=== PATIENT | male | born 1945 | race Caucasian/White ===

== ENCOUNTER 2018-04-16 14:16 | Inpatient (IN) | payer MEDICARE, MEDICAID ==
[~2018-04-16] VITALS: Ht 182.9 cm; Wt 63.2 kg
[2018-04-16] MEDS ORDERED: methylPREDNISolone SOD SUCC 125 MG/2 ML ONE (14:55)
[2018-04-16 14:58] LABS: BASOPHILS # (AUTO) 0.03 x10^3/uL (0-0.1); BASOPHILS % (AUTO) 0 % (0-1); EOSINOPHILS % (AUTO) 0 % (1-7); LYMPHOCYTES # (AUTO) 1.32 x10^3/uL (1-3.4); LYMPHOCYTES % (AUTO) 10 % (22-44); MD NO; MEAN CORPUSCULAR HEMOGLOBIN 32.1 pg (27.5-34.5); MEAN CORPUSCULAR HGB CONC 33.4 g/dL (33.2-36.2); MEAN CORPUSCULAR VOLUME 96.1 fL (81-97); MEAN PLATELET VOLUME 8.8 fL (7.4-10.4); MONOCYTES # (AUTO) 1.22 x10^3/uL (0.2-0.8); MONOCYTES % (AUTO) 9 % (2-9); NEUTROPHILS # (AUTO) 10.57 x10^3/uL (1.8-6.8); NEUTROPHILS % (AUTO) 80 % (42-75); PLATELET COUNT 192 x10^3/uL (130-400); RED BLOOD COUNT 4.86 x10^6/uL (4.38-5.82); RED CELL DISTRIBUTION WIDTH 13.4 % (9.4-14.8)
[2018-04-16] MEDS ORDERED: methylPREDNISolone SOD SUCC 125 MG/2 ML IVP ONE (15:00)
[2018-04-16] MEDS ORDERED: CEFTRIAXONE 1,000 MG in SODIUM CHLORIDE 0.9% 50 ML IVPB ONE (15:00)
[2018-04-16] MEDS ORDERED: AZITHROMYCIN 500 MG in SODIUM CHLORIDE 0.9% 250 ML IVPB ONE (15:00)
[2018-04-16] MEDS ORDERED: ALBUTEROL/IPRATROPIUM 2.5MG/0.5MG, 3 ML ONE (15:01)
[2018-04-16 15:08] LABS: ALBUMIN 3.5 g/dL (3.4-5.0); ANION GAP 10 mmol/L (5-15); CALCIUM 8.7 mg/dL (8.5-10.1); CHLORIDE 102 mmol/L (98-107); CREATININE 0.75 mg/dL (0.7-1.3)
[2018-04-16] MEDS ORDERED: CEFTRIAXONE PMX 1GM/50ML 50 ML ONE (15:10)
[2018-04-16 15:11] LABS: TROPONIN I < 0.015 ng/mL (0.000-0.045)
[2018-04-16] MEDS ORDERED: METHOCARBAMOL 500 MG TABLET PO PRN (17:00)
[2018-04-16] MEDS ORDERED: ONDANSETRON 2MG/ML, 2ML IVPush PRN (17:00)
[2018-04-16] MEDS ORDERED: LABETALOL 5MG/ML, 20ML IVPush PRN (17:00)
[2018-04-16] MEDS ORDERED: BISACODYL 10 MG SUPP PR PRN (17:00)
[2018-04-16] MEDS ORDERED: ACETAMINOPHEN 325 MG TABLET PO PRN (17:00)
[2018-04-16] MEDS ORDERED: hydrALAzine 20 MG/ML, 1ML IVPush PRN (17:00)
[2018-04-16] MEDS ORDERED: LIDODERM 5% PATCH TD PRN (17:00)
[2018-04-16] MEDS: methylPREDNISolone SOD SUCC 125 MG/2 ML IVPush SCH (18:13)
[2018-04-16] MEDS: GUAIFENESIN ER 600 MG TABLET PO SCH ×2 (18:14→20:11)
[2018-04-16] MEDS: HEPARIN 5,000 UNITS/ML, 1ML SQ SCH (18:14)
[2018-04-16] MEDS: CEFTRIAXONE PMX 1GM/50ML 50 ML IV SCH (19:24)
[2018-04-16] MEDS: ALBUTEROL/IPRATROPIUM 2.5MG/0.5MG, 3 ML NPPB SCH ×2 (19:47→23:21)
[2018-04-16 20:00] VITALS: BP 112/60
[2018-04-16] MEDS ORDERED: DOXYCYCLINE 100MG TABLET PO ONE (21:00)
[2018-04-17] MEDS: methylPREDNISolone SOD SUCC 125 MG/2 ML IVPush SCH ×3 (01:53→18:10)
[2018-04-17] MEDS: HEPARIN 5,000 UNITS/ML, 1ML SQ SCH ×3 (01:53→18:10)
[2018-04-17 02:00] VITALS: BP 101/60
[2018-04-17] MEDS: ALBUTEROL/IPRATROPIUM 2.5MG/0.5MG, 3 ML NPPB SCH ×6 (02:45→23:07)
[2018-04-17 05:21] LABS: BASOPHILS % (AUTO) 0 % (0-1); EOSINOPHILS % (AUTO) 0 % (1-7); LYMPHOCYTES # (AUTO) 0.59 x10^3/uL (1-3.4); LYMPHOCYTES % (AUTO) 7 % (22-44); MD NO; MEAN CORPUSCULAR HEMOGLOBIN 31.9 pg (27.5-34.5); MEAN CORPUSCULAR HGB CONC 33.2 g/dL (33.2-36.2); MEAN PLATELET VOLUME 9.4 fL (7.4-10.4); MONOCYTES % (AUTO) 2 % (2-9); NEUTROPHILS # (AUTO) 7.91 x10^3/uL (1.8-6.8); NEUTROPHILS % (AUTO) 91 % (42-75); PLATELET COUNT 180 x10^3/uL (130-400); RED BLOOD COUNT 4.44 x10^6/uL (4.38-5.82); RED CELL DISTRIBUTION WIDTH 13.8 % (9.4-14.8)
[2018-04-17 05:29] LABS: ANION GAP 6 mmol/L (5-15); CALCIUM 8.5 mg/dL (8.5-10.1); CHLORIDE 104 mmol/L (98-107)
[2018-04-17 05:30] LABS: CREATININE 0.68 mg/dL (0.7-1.3)
[2018-04-17 08:00] VITALS: BP 114/62
[2018-04-17] MEDS ORDERED: POTASSIUM CHLORIDE 20 MEQ TAB.ER.PRT PO ONE (08:00)
[2018-04-17] MEDS: GUAIFENESIN ER 600 MG TABLET PO SCH ×2 (08:25→21:08)
[2018-04-17 13:18] VITALS: BP 104/54
[2018-04-17] MEDS: NICOTINE 14MG/24 HR PATCH.TD24 TD SCH (13:22)
[2018-04-17] MEDS: CEFTRIAXONE PMX 1GM/50ML 50 ML IV SCH (18:10)
[2018-04-17 19:39] VITALS: BP 101/45
[2018-04-18] MEDS: HEPARIN 5,000 UNITS/ML, 1ML SQ SCH ×3 (01:56→18:06)
[2018-04-18] MEDS: methylPREDNISolone SOD SUCC 125 MG/2 ML IVPush SCH (01:56)
[2018-04-18] MEDS: ALBUTEROL/IPRATROPIUM 2.5MG/0.5MG, 3 ML NPPB SCH ×6 (02:34→23:00)
[2018-04-18 05:06] VITALS: BP 113/63
[2018-04-18 07:06] VITALS: BP 116/68
[2018-04-18 08:40] LABS: ANION GAP 8 mmol/L (5-15); CALCIUM 8.5 mg/dL (8.5-10.1); CHLORIDE 109 mmol/L (98-107)
[2018-04-18 08:49] LABS: MEAN CORPUSCULAR HGB CONC 33.3 g/dL (33.2-36.2); MEAN CORPUSCULAR VOLUME 96.1 fL (81-97); MEAN PLATELET VOLUME 8.8 fL (7.4-10.4); PLATELET COUNT 218 x10^3/uL (130-400); RED BLOOD COUNT 4.44 x10^6/uL (4.38-5.82); RED CELL DISTRIBUTION WIDTH 14.3 % (9.4-14.8)
[2018-04-18 08:50] LABS: BASOPHILS # (AUTO) 0.04 x10^3/uL (0-0.1); BASOPHILS % (AUTO) 0 % (0-1); EOSINOPHILS % (AUTO) 0 % (1-7); LYMPHOCYTES # (AUTO) 0.65 x10^3/uL (1-3.4); LYMPHOCYTES % (AUTO) 4 % (22-44); MD SCAN; MONOCYTES # (AUTO) 0.43 x10^3/uL (0.2-0.8); MONOCYTES % (AUTO) 2 % (2-9); NEUTROPHILS # (AUTO) 17.27 x10^3/uL (1.8-6.8); NEUTROPHILS % (AUTO) 94 % (42-75)
[2018-04-18] MEDS: GUAIFENESIN ER 600 MG TABLET PO SCH ×2 (10:21→20:54)
[2018-04-18] MEDS: DOXYCYCLINE 100MG TABLET PO SCH ×2 (10:21→20:54)
[2018-04-18 13:05] VITALS: BP 115/52
[2018-04-18] MEDS: NICOTINE 14MG/24 HR PATCH.TD24 TD SCH (13:10)
[2018-04-18] MEDS: POLYETHYLENE GLYCOL 17 GM PACKET PO PRN (13:32)
[2018-04-18] MEDS: CEFTRIAXONE PMX 1GM/50ML 50 ML IV SCH (18:05)
[2018-04-18 20:48] VITALS: BP 126/48
[2018-04-18] MEDS ORDERED: methylPREDNISolone SOD SUCC 125 MG/2 ML IVPush SCH (21:30)
[2018-04-19 02:00] VITALS: BP 131/63
[2018-04-19] MEDS: ALBUTEROL/IPRATROPIUM 2.5MG/0.5MG, 3 ML NPPB SCH ×5 (02:34→20:10)
[2018-04-19] MEDS: HEPARIN 5,000 UNITS/ML, 1ML SQ SCH ×3 (03:18→18:19)
[2018-04-19 08:29] VITALS: BP 126/67
[2018-04-19 08:53] LABS: MEAN CORPUSCULAR HEMOGLOBIN 31.7 pg (27.5-34.5); MEAN CORPUSCULAR HGB CONC 32.8 g/dL (33.2-36.2); MEAN CORPUSCULAR VOLUME 96.6 fL (81-97); MEAN PLATELET VOLUME 8.4 fL (7.4-10.4); PLATELET COUNT 204 x10^3/uL (130-400); RED BLOOD COUNT 4.25 x10^6/uL (4.38-5.82); RED CELL DISTRIBUTION WIDTH 14.1 % (9.4-14.8)
[2018-04-19 09:00] LABS: ANION GAP 4 mmol/L (5-15); CALCIUM 8.2 mg/dL (8.5-10.1); CHLORIDE 110 mmol/L (98-107); CREATININE 0.53 mg/dL (0.7-1.3)
[2018-04-19] MEDS ORDERED: GUAI600T31 PO ×2 (09:02)
[2018-04-19] MEDS ORDERED: DOXY100T PO ×2 (09:02)
[2018-04-19] MEDS ORDERED: CEFD300C37 PO ×2 (09:02)
[2018-04-19] MEDS ORDERED: NICO-486 TD ×2 (09:02)
[2018-04-19] MEDS ORDERED: PRED20TA PO ×2 (09:02)
[2018-04-19 09:08] LABS: BASOPHILS # (AUTO) 0.01 x10^3/uL (0-0.1); BASOPHILS % (AUTO) 0 % (0-1); EOSINOPHILS % (AUTO) 0 % (1-7); LYMPHOCYTES # (AUTO) 1.43 x10^3/uL (1-3.4); LYMPHOCYTES % (AUTO) 11 % (22-44); MD SCAN; MONOCYTES # (AUTO) 0.95 x10^3/uL (0.2-0.8); MONOCYTES % (AUTO) 7 % (2-9); NEUTROPHILS # (AUTO) 10.46 x10^3/uL (1.8-6.8); NEUTROPHILS % (AUTO) 81 % (42-75)
[2018-04-19] MEDS: GUAIFENESIN ER 600 MG TABLET PO SCH ×2 (09:17→21:49)
[2018-04-19] MEDS: CEFDINIR 300 MG CAPSULE PO SCH ×2 (09:18→21:49)
[2018-04-19] MEDS: DOXYCYCLINE 100MG TABLET PO SCH ×2 (09:18→21:49)
[2018-04-19] MEDS: POLYETHYLENE GLYCOL 17 GM PACKET PO PRN (11:00)
[2018-04-19] MEDS ORDERED: ALBUTEROL SULFATE 2.5 MG/3 ML NPPB PRN (13:00)
[2018-04-19] MEDS: NICOTINE 14MG/24 HR PATCH.TD24 TD SCH (15:19)
[2018-04-19 16:00] VITALS: BP 160/63
[2018-04-19 20:47] VITALS: BP 129/54
[2018-04-20 01:39] VITALS: BP 117/64
[2018-04-20] MEDS: HEPARIN 5,000 UNITS/ML, 1ML SQ SCH ×3 (05:15→17:20)
[2018-04-20] MEDS: NICOTINE 14MG/24 HR PATCH.TD24 TD SCH (05:16)
[2018-04-20] MEDS: ALBUTEROL/IPRATROPIUM 2.5MG/0.5MG, 3 ML NPPB SCH ×4 (07:00→18:39)
[2018-04-20 08:00] VITALS: BP 152/71
[2018-04-20] MEDS: CEFDINIR 300 MG CAPSULE PO SCH ×2 (08:49→20:26)
[2018-04-20] MEDS: DOXYCYCLINE 100MG TABLET PO SCH ×2 (08:49→20:26)
[2018-04-20] MEDS: GUAIFENESIN ER 600 MG TABLET PO SCH ×2 (08:49→20:25)
[2018-04-20 14:57] VITALS: BP 124/69
[2018-04-20 20:19] VITALS: BP 129/64
[2018-04-20] MEDS: DOCUSATE 100 MG CAPSULE PO PRN (20:28)
[2018-04-21] MEDS: HEPARIN 5,000 UNITS/ML, 1ML SQ SCH ×3 (02:37→17:17)
[2018-04-21 02:38] VITALS: BP 162/76
[2018-04-21] MEDS: ALBUTEROL/IPRATROPIUM 2.5MG/0.5MG, 3 ML NPPB SCH ×4 (07:00→19:44)
[2018-04-21 07:45] VITALS: BP 159/74
[2018-04-21] MEDS: GUAIFENESIN ER 600 MG TABLET PO SCH ×2 (08:22→20:57)
[2018-04-21] MEDS: CEFDINIR 300 MG CAPSULE PO SCH ×2 (08:22→20:57)
[2018-04-21] MEDS: DOXYCYCLINE 100MG TABLET PO SCH ×2 (08:22→20:58)
[2018-04-21] MEDS: NICOTINE 14MG/24 HR PATCH.TD24 TD SCH (12:59)
[2018-04-21 13:45] VITALS: BP 135/74
[2018-04-21] MEDS: DOCUSATE 100 MG CAPSULE PO PRN (17:17)
[2018-04-21 20:00] VITALS: BP 120/51
[2018-04-22 01:45] VITALS: BP 119/53
[2018-04-22] MEDS: HEPARIN 5,000 UNITS/ML, 1ML SQ SCH ×3 (02:00→17:16)
[2018-04-22 06:38] VITALS: BP 132/64
[2018-04-22] MEDS: ALBUTEROL/IPRATROPIUM 2.5MG/0.5MG, 3 ML NPPB SCH ×4 (06:58→20:00)
[2018-04-22] MEDS: DOXYCYCLINE 100MG TABLET PO SCH ×2 (09:00→20:57)
[2018-04-22] MEDS: CEFDINIR 300 MG CAPSULE PO SCH ×2 (09:50→20:57)
[2018-04-22] MEDS: GUAIFENESIN ER 600 MG TABLET PO SCH ×2 (09:50→20:57)
[2018-04-22 12:14] VITALS: BP 115/62
[2018-04-22] MEDS: NICOTINE 14MG/24 HR PATCH.TD24 TD SCH (13:00)
[2018-04-22 19:17] VITALS: BP 99/47
[2018-04-23] MEDS: HEPARIN 5,000 UNITS/ML, 1ML SQ SCH ×4 (02:00→23:41)
[2018-04-23 02:48] VITALS: BP 115/63
[2018-04-23 06:29] VITALS: BP 120/63
[2018-04-23] MEDS: ALBUTEROL/IPRATROPIUM 2.5MG/0.5MG, 3 ML NPPB SCH ×4 (07:00→19:20)
[2018-04-23] MEDS: GUAIFENESIN ER 600 MG TABLET PO SCH (08:05)
[2018-04-23] MEDS: NICOTINE 14MG/24 HR PATCH.TD24 TD SCH (08:05)
[2018-04-23] MEDS: DOXYCYCLINE 100MG TABLET PO SCH (08:05)
[2018-04-23] MEDS: CEFDINIR 300 MG CAPSULE PO SCH (08:05)
[2018-04-23 12:42] VITALS: BP 95/60
[2018-04-23 19:28] VITALS: BP 109/65
[2018-04-24 01:58] VITALS: BP 108/68
[2018-04-24 07:23] VITALS: BP 114/62
[2018-04-24] MEDS ORDERED: ALBUTEROL/IPRATROPIUM 2.5MG/0.5MG, 3 ML NPPB PRN (07:30)
== END 2018-04-24 09:27 | disposition home or self-care (01) | DRG 871 ==
LOC: ED 16:39 → EDIP 16:53 → 4EST 17:40
PROVIDERS: ADMIT Hospitalist; ATTEND Hospitalist
DX: A41.9 Sepsis, unspecified organism (principal); J15.9 Unspecified bacterial pneumonia; J96.91 Respiratory failure, unspecified with hypoxia; J44.1 Chronic obstructive pulmonary disease with (acute) exacerbation; J44.0 Chronic obstructive pulmonary disease with (acute) lower respiratory infection; E87.6 Hypokalemia; T38.0X5A Adverse effect of glucocorticoids and synthetic analogues, initial encounter; F17.290 Nicotine dependence, other tobacco product, uncomplicated; M48.00 Spinal stenosis, site unspecified; Z85.828 Personal history of other malignant neoplasm of skin; Z99.3 Dependence on wheelchair; Z71.6 Tobacco abuse counseling; Y92.89 Other specified places as the place of occurrence of the external cause
CPT/HCPCS: 36415; 71045; 71046; 80048; 82040; 83605; 83880; 84443; 84484; 85025; 87040; 87070; 87205; 93005; 94640; 96365; 96368; 96375; 99285; G0378; J0456; J0696; J1644; J7620; J2930; J7050; J7512